=== PATIENT | female | born 1950 | race Hispanic/Latino ===

== ENCOUNTER 2017-10-29 06:14 | Day surgery (SDC) | payer BC ==
--- NOTE | 2017-10-29 07:35 | CP.SDSHP ---
Same Day Surgery H & P - History Proposed Procedure: Left knee diagnostic arthroscopy, partial medial meniscectomy Pre-Op Diagnosis: Left knee medial meniscus tear - Previous Medical/Surgical History Pain: 6.Severe Pain Previous Surgical History: Laproscopic appendectomy - Allergies Allergies: Allergies No Known Allergies Allergy (Verified 10/29/17 06:38) - Current Medications Current Medications: none - Physical Exam General Appearance: No acute distress Vital Signs: Vital Signs 10/29/17 07:01 Temperature 98.4 F Pulse Rate 77 Respiratory 18 Rate Blood Pressure 105/64 O2 Sat by Pulse 98 Oximetry Mental Status: Alert & Oriented x3 Neuro: WNL Heart: WNL Lungs: WNL GI: WNL - {Optional Preform as Required} Abdomen: WNL Integument: WNL Ortho: Other (Left knee: medial joint line tenderness, mild effusion, mild swelling, + McMurrays test medially, neg lachmans, 4/5 quad/Hs strength, gross NVI distally) ENT: WNL - Impression Impression: Patient is a 67 y/o female who complains of left knee pain for the past year which has progressively worsened over the past few months. The pain has been resistant to conservative management with ice, physical therapy as well as intra-articular steriod injections. Risks/benefits of above procedure were explained to patient in detail and she agrees to proceed. Pt. Evaluated Today:Candidate for Anesthesia & Procedure: Yes - Date & Time Date: 10/29/17 Time: 07:39 Short Stay Discharge - Short Stay Discharge Admitting Diagnosis/Reason for Visit: S83.242A Disposition: HOME/ ROUTINE Referrals: Denis Rivas III, MD [Primary Care Provider] -
[2017-10-29] MEDS ORDERED: ceFAZolin IV 1 gm in Dextrose 1 GM/50 ML BAG IVPB ONE (10:18)
[2017-10-29] MEDS ORDERED: Midazolam 2 MG/2 ML VIAL ONE (10:18)
[2017-10-29] MEDS ORDERED: Lidocaine 1% 5ml Abboject IV ONE (10:18)
[2017-10-29] MEDS ORDERED: Propofol 10 mg/ml Inj (20 ML) ONE (10:18)
[2017-10-29] MEDS ORDERED: EPINEPHrine 1 mg/ml (1:1000) Inj ONE (10:18)
[2017-10-29] MEDS ORDERED: Lidocaine 2% Jelly (5 ml) TOP ONE (10:18)
[2017-10-29] MEDS ORDERED: Lidocaine 2% Inj (20ml) ONE (10:19)
[2017-10-29] MEDS ORDERED: Bacitracin Ointment 30 GM TUBE ONE (10:19)
[2017-10-29] MEDS ORDERED: Bupivacaine 0.5% Inj(30mL) ONE (10:19)
[2017-10-29] MEDS ORDERED: methylPREDNISolone Depo 80 mg/ml Inj ONE (10:40)
[2017-10-29] MEDS ORDERED: Lactated Ringer's 1,000 ML IV ONE (12:00)
[2017-10-29 12:23] VITALS: RESP 18; BMI 29.5
[2017-10-29] MEDS ORDERED: Morphine 1 mg/ml preservative-free Inj(Duramorph) ONE (13:14)
[2017-10-29] MEDS ORDERED: HYDROmorphone 0.5 mg/0.5 ml ISec IVP PRN (13:37)
[2017-10-29] MEDS ORDERED: Morphine 4 MG/ML VIAL IVP PRN (13:38)
[2017-10-29] MEDS ORDERED: Oxycodone/Acetaminophen 5/325 mg Tab PO PRN (13:38)
[2017-10-29] MEDS ORDERED: Lactated Ringer's 1,000 ML IV SCH ×2 (13:45)
[2017-10-29 16:21] VITALS: BP 118/57; PULSE 89; TEMP 97.6; O2SAT 98
--- NOTE | 2017-10-29 21:27 | PCM.SURG1 ---
Surgeon's Initial Post Op Note - Surgeon's Notes Surgeon: Rob Heat And Frost Insulator: AMY Hearn/ Debbie Shah PA-C Type of Anesthesia: General Endo Anesthesia Administered By: Dr davis Pre-Operative Diagnosis: internal derangement Left Knee Operative Findings: com plex tear medial meniscus/tear lateral meniscus. tricompartmental synovitis. chondral fx medial femoral condyle Post-Operative Diagnosis: same Operation Performed: arthroscopic partial medial/ partial lateral meniscectomy. arhroscopic partial tricompatrmental synovectomy. chondral fx medial femoral condyle Specimen/Specimens Removed: cartilage/ synovium Estimated Blood Loss: EBL {In ML}: 5 Blood Products Given: N/A Drains Used: No Drains Date of Surgery/Procedure: 10/29/17 Time of Surgery/Procedure: 12:40 (time in room 12:00/anesthesia induction time-` 1200)
--- NOTE | 2017-10-30 09:38 | OP ---
PROCEDURE DATE: 10/29/2017 PREOPERATIVE DIAGNOSES: 1. Internal derangement of the left knee. 2. Complex tear medial meniscus. 3. Chondral fracture, medial compartment arthritis. 4. Tricompartmental synovitis. POSTOPERATIVE DIAGNOSES: 1. Internal derangement of the left knee. 2. Complex tear medial meniscus. 3. Chondral fracture, medial compartment arthritis. 4. Tricompartmental synovitis. PROCEDURES: 1. Surgical arthroscopy, abrasion arthroplasty, medial femoral condyle. 2. Surgical arthroscopy, partial tricompartmental synovectomy. 3. Surgical arthroscopy, partial medial lateral meniscectomy. 4. Intra-articular injection. SURGEON: Denis Rivas MD RIVET MAKER: Tyra Guerra, certified registered nursing first helper. ANESTHESIA: General endotracheal anesthesia, Dr. davis. COMPLICATIONS: No complications. DRAINS: No drains. OPERATIVE INDICATIONS: Ingrid Avila is a 66-year-old woman well-known to my practice who presents with severe knee pain and restricted range of motion. The patient has been refractory to conservative approach consisting of intra-articular injection and anti-inflammatory medication therapy. Pros, cons, risks and benefits of surgical approach were discussed with the possibility of mechanical failure, infection, thromboembolic disease, secondary or tertiary surgery was discussed. The patient no longer would withstand the discomfort and wished the surgery to be accomplished. Again the possibility of mechanical failure, infection, thromboembolic disease, nerve injury, secondary surgery, and possibility of arthroplasty in the future was discussed, although the patient is a very physiologically young appearing female. OPERATIVE PROCEDURE: After having obtained informed consent in the above fashion, after having identified side, site and procedure and critical pause/time-out after the satisfactory induction of anesthetic, the patient identified as Ingrid Avila in the supine position with all bony prominences well padded, the left lower extremity was prepped and free draped in the usual fashion for extremity surgery. The tourniquet had been applied but was not yet inflated. The knee ferguson was employed. After exsanguinating the limb using a 6-inch Esmarch bandage, the tourniquet, which had been applied, was inflated to 350 mmHg. The joint is insufflated from an anterolateral portal with 10 mL of 1% lidocaine. At a point one thumbs breadth lateral to the inferior pole of the patella using #1 blade followed by spreading introduction of blunt trocar, the arthroscope was introduced. There was found to be great deal of inflammatory synovitis. With the surgeon exerting a general valgus stress using number 18-gauge spinal needle followed by #1 blade followed by spreading, an anteromedial portal was established. This having been accomplished, the arthroscope was transferred anteromedially and careful partial tricompartmental synovectomy was accomplished both to improve visualization and to ablate irritative tissue. With the arthroscope anteromedially, a careful partial tricompartmental synovectomy was accomplished and bleeding points were controlled with the ArthroCare wand. This having been accomplished, there was found to be a complex tear of the medial meniscus. Using number 18-gauge spinal needle followed by #11 blade followed by spreading, an anterocentral portal was accomplished as well. With the arthroscope now replaced anterolaterally, the medial meniscus was identified. There was found to be a complex tear of the mid aspect of the deep posterior horn of the medial meniscus. With the arthroscope anterolaterally, careful partial tricompartmental synovectomy was accomplished again to ablate irritative tissue and to improve visualization. The arthroscope was transferred anteromedially anterocentral portal. Essentially bucket-handle tear was identified. Using the arthroscopic scissors, the anterior aspect of the deep posterior horn was released. A careful partial tricompartmental synovectomy is completed. With the arthroscope anterocentrally, the leading edge was grasped and this having been accomplished using the arthroscopic scissors, the meniscal fragment is removed. This having been accomplished, there was found to be evidence of further complex tear of the medial meniscus. With the arthroscope now anterolaterally, using a combination of the arthroscopic shaver and left biting basket forceps, the partial medial meniscectomy is completed. There was found to be evidence of chondral damage in the medial femoral condyle and at the superior aspect of the medial femoral condyle initially enough. The anterior cruciate ligament is found to be intact with the knee in figure four position. The lateral meniscus was identified using a combination of straight biting basket forceps and side biting basket forceps and partial lateral meniscectomy is accomplished. The inner free edge is smoothed using ArthroCare wand. With the arthroscope anterolaterally, with the surgeon exerting a gentle valgus stress, using the arthroscopic shaver, the inner free edge was smoothed using the ArthroCare wand. Careful partial tricompartmental synovectomy is completed. Bleeding points controlled with the arthroscopic wand. Attention now is turned after a partial lateral meniscectomy was accomplished with the angle biting forceps 3.4 mm FD9 Groups suction punch and the arthroscopic shaver, abrasion arthroplasty was accomplished using the arthroscopic shaver. The articular cartilage fragments were removed and abrasion arthroplasty was thus accomplished. Abrasion arthroplasty of the medial femoral condyle having been accomplished, partial tricompartmental synovectomy is completed. Bleeding points controlled with the arthroscopic wand. Closures in layers with interrupted Vicryl and nylon. Intra-articular injection was offered. Michele Suárez compression dressing was applied. Denis Rivas MD
== END 2017-10-29 16:45 | disposition home or self-care (01) ==
LOC: H.OPSURG 06:14
PROVIDERS: ATTEND Orthopaedic Surgery
DX: S82.092A Other fracture of left patella, initial encounter for closed fracture (principal); Z87.891 Personal history of nicotine dependence; M65.862 Other synovitis and tenosynovitis, left lower leg; M13.862 Other specified arthritis, left knee; X58.XXXA Exposure to other specified factors, initial encounter
CPT/HCPCS: 20600; 29876; 29881; 88305; 97116; 97161; G8978; G8979; G8980; J0171; J0690; J1040; J1885; J2250; J2270; J2704; J2765; J3010; J7120